=== PATIENT | male | born 1980 | race Caucasian/White ===

== ENCOUNTER 2016-04-27 02:01 | Emergency (ER) | payer OTHER ==
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
[2016-04-27] MEDS ORDERED: NALOXONE HCL INJ 1 MG/ML SYG IV ONE (02:50)
[2016-04-27] MEDS ORDERED: LACTATED RINGERS 1,000 ML IVS ONE (02:50)
--- NOTE | 2016-04-27 02:50 | CT ---
EXAM DESCRIPTION: CT HEAD WITHOUT IV CONTRAST 04/27/2016 2:43 AM CLINICAL HISTORY: 35 y/o , M, ams. COMPARISON: None. TECHNIQUE: Volumetric CT acquisition was performed through the brain. Images in the axial plane were presented for interpretation. Coronal and sagittal reconstruction images were presented for interpretation. FINDINGS: The soft tissue structures of the face and scalp are normal. The globes remain intact. The soft tissues of the orbital fossae are normal. The paranasal sinuses are grossly clear. Limited evaluation of the facial bones demonstrate no gross abnormalities. The calvarium remains intact. There is no evidence of acute intracranial hemorrhage, midline shift, or mass effect. The ventricles are age appropriate in size. The posterior fossa structures are within normal limits. Specifically, there is no CT evidence of acute infarct, though CT can be insensitive for the detection of acute ischemia. IMPRESSION: No acute intracranial process Electronically signed by: Flaca Mcbride MD 04/27/2016 02:49
[2016-04-27] MEDS ORDERED: MULTIPLE VITAMIN INJ 10 ML in SODIUM CHLORIDE 0.9% 1000ML 1,000 ML IVPB ONE (03:08)
[2016-04-27] MEDS ORDERED: SODIUM CHLORIDE 0.9% 1000ML 1,000 ML ONE (03:46)
[2016-04-27] MEDS ORDERED: MULTIPLE VITAMIN 10 ML VIAL ONE (03:47)
[2016-04-27 07:13] VITALS: BP 142/87
[2016-04-27 08:02] VITALS: TEMP 98.2; O2SAT 95
== END 2016-04-27 08:00 ==
LOC: ER 02:01
DX: F10.129 Alcohol abuse with intoxication, unspecified (principal); Y90.8 Blood alcohol level of 240 mg/100 ml or more; R40.4 Transient alteration of awareness
CPT/HCPCS: 36415; 70450; 80053; 80320; 80329; 81001; 85025; G0479; J2310; J7030; J7120